=== PATIENT | female | born 1955 | race Caucasian/White ===

== ENCOUNTER → 2018-02-01 12:12 | Outpatient (CLI) | payer OTHER, SELFPAY ==
[2018-02-07 13:06] LABS: HPV Reflexed? NOT INDICATED
== END ==
PROVIDERS: Family Provider Family Medicine; PCP Family Medicine; Visit Provider Obstetrics & Gynecology
DX: Z12.4 Encounter for screening for malignant neoplasm of cervix (principal)
CPT/HCPCS: 88175; G0145

== ENCOUNTER → 2018-02-23 11:53 | Outpatient (CLI) | payer OTHER, SELFPAY | PROVIDERS: Family Provider Family Medicine; PCP Family Medicine; Visit Provider Obstetrics & Gynecology | DX: Z12.31 Encounter for screening mammogram for malignant neoplasm of breast (principal) | CPT/HCPCS: 77063; 77067 ==

== ENCOUNTER → 2018-04-12 12:30 | Outpatient (CLI) | payer OTHER, SELFPAY ==
[2018-04-12 14:10] LABS: Absolute Lymphocyte Count 2.68 X10^3/ul (0.83-4.51); Absolute Neutrophil Count 2.5 X10^3/uL (2.0-7.7); Basophil# 0.02 X10^3/uL; Basophil% 0.3 % (0-1); Eosinophils% 1.7 % (0-5); Hematocrit 41.1 % (37-47); Hemoglobin 13.4 g/dl (12.0-15.0); Lymphocyte # 2.68 X10^3/ul (4.0); Lymphocyte % 46.8 % (19-41); Mean Corp Hgb Conc 32.6 g/gl (32-36); Mean Corpuscular Hgb 29.2 pg (27.0-32.0); Mean Corpuscular Volume 89.5 fL (81-99); Monocyte# 0.45 X10^3/uL; Monocyte% 7.9 % (0-10); Neutrophil # 2.47 X10^3/uL (2.7-7.7); Neutrophil % 43.1 % (47-70); POSITIVE COUNT NO; POSITIVE DIFFERENTIAL NO; POSITIVE MORPHOLOGY NO; Platelet Count 268 K/mm3 (150-450); RBC Distribution Width CV 13.4 % (11.6-14.6); RBC Distribution Width SD 43.8 fl (35.1-43.9); Red Blood Count 4.59 M/mm3 (4.2-5.4); White Blood Count 5.7 K/mm3 (4.4-11.0)
[2018-04-12 14:26] LABS: Hemoglobin A1c 6.3 % (4.2-6.3)
[2018-04-12 14:34] LABS: Progesterone Level 0.22 ng/mL (See Comment); Vitamin B12 862 pg/mL (211-911); Vitamin D,25 Hydroxy 72.4 ng/mL (29.95-100.01)
[2018-04-12 15:32] LABS: Albumin, Serum 3.7 g/dL (3.2-5.0); BUN 16 mg/dL (7-18); BUN/Creat Ratio 21.9 RATIO (10-20); Creatinine, Serum 0.73 mg/dL (0.55-1.02); EST Glomerular Filtration Rate 86 mL/min (>60); Est Glom Filt Rate - Afr Amer 104 mL/min (>60); Glucose 94 mg/dL (74-106); Protein, Total 7.5 g/dL (6.4-8.2)
[2018-04-12 15:33] LABS: AST(SGOT) 13 U/L (15-37); Alanine Aminotransfer ALT/SGPT 27 U/L (13-56); Alkaline Phosphatase 78 U/L (45-117); Anion Gap 8 (5-15); Calcium,Total 9.2 mg/dL (8.5-10.1); Chloride 106 mmol/L (98-107); Estradiol < 11.0 pg/mL; Free T3 3.8 pg/mL (2.18-3.98); Globulin 3.8 g/dL (2.2-4.2); Potassium 3.8 mmol/L (3.5-5.1); Sodium Level 141 mmol/L (136-145); T4 Free Direct 0.82 ng/dL (0.76-1.46); Thyroid Stim Hormone (TSH) 0.64 uIU/mL (0.358-3.74)
[2018-04-13 04:09] LABS: DHEA Sulfate 66.6 ug/dL (29.4-220.5)
[2018-04-13 08:25] LABS: Thyroid Peroxidase AB 46 IU/mL (0-34)
== END ==
PROVIDERS: Family Provider Family Medicine; PCP Family Medicine; Referring Provider Preventive Medicine Public Health & General Preventive Medicine; Visit Provider Preventive Medicine Public Health & General Preventive Medicine
DX: E03.9 Hypothyroidism, unspecified (principal); E34.9 Endocrine disorder, unspecified; N95.1 Menopausal and female climacteric states; E55.9 Vitamin D deficiency, unspecified; R61 Generalized hyperhidrosis; L65.9 Nonscarring hair loss, unspecified; E53.8 Deficiency of other specified B group vitamins
CPT/HCPCS: 36415; 80053; 82306; 82607; 82627; 82670; 82746; 83036; 84144; 84403; 84439; 84443; 84481; 85025; 86376; 82626

== ENCOUNTER → 2020-05-13 14:54 | Outpatient (CLI) | payer OTHER, SELFPAY ==
--- NOTE | 2020-05-13 14:57 | BI_ITS ---
MAMMOGRAPHY - BILATERAL SCREENING REASON FOR EXAM: Female, 65 years old. Routine annual screening examination. PERTINENT HISTORY: Non-contributory. Prior right ultrasound guided breast biopsy. TECHNIQUE: Digital bilateral breast geetha (3D mammographic acquisition) in the CC and MLO projections. 2-D mediolateral oblique (MLO) and craniocaudad (CC) views of both breasts were obtained. CAD: Full Field Digital Mammography with Computer Added Detection was performed. COMPARISON: Comparison is made with prior study dated 02/23/2018 and 05/13/2016. FINDINGS: Breast Composition: There are scattered areas of fibroglandular density. There are no dominant masses or suspicious calcifications. A tissue clip marker is once again seen in the superior midportion of the right breast within a 5.4 mm nodular density. No other significant abnormalities are identified. There has been no significant change since the prior study. BI/SCREEN MAMM (CAD) W/GEETHA BILAT IMPRESSION: Stable bilateral screening mammogram. Yearly follow-up mammogram recommended. (A) ASSESSMENT CATEGORY: BIRADS Category 2: Benign. A letter regarding these results will be sent to the patient by the facility within 30 days. Approximately 10% of breast cancers are not detected by mammography. A normal mammogram should not delay biopsy of a clinically suspicious abnormality. [id number] Electronically Signed: Vijay Tejeda, at 15:37 EST , Service support ,
== END ==
PROVIDERS: PCP Family Medicine; Referring Provider Student in an Organized Health Care Education/Training Program; Visit Provider Student in an Organized Health Care Education/Training Program
DX: Z12.31 Encounter for screening mammogram for malignant neoplasm of breast (principal)
CPT/HCPCS: 77063; 77067

== ENCOUNTER 2020-11-01 21:47 | Emergency (ER) | payer OTHER, SELFPAY ==
[2020-11-01 21:50] VITALS: BP 159/98; PULSE 84; RESP 18; TEMP 36.6; O2SAT 97; BMI 26.6
--- NOTE | 2020-11-01 22:32 | EDS_ITS ---
HPI History of Present Illness Chief Complaint: Other, Pain/Inj Informant: patient Onset/Context/Timing Onset: Today Mechanism/Context: other (Patient denies any trauma. Patient states the swelling and pain started spontaneously.) Location of pain/injuries: Right lower leg Quality of Pain: Aching Location: Right proximal tibia Worsened by: Dependent position Relieved by: Elevation Associated Symptoms Associated Symptoms: Negative for Parasthesias and Weakness Narrative Narrative: Patient presents with pain and swelling to her right lower leg that began tonight. Patient states it began spontaneously. Patient denies any trauma or injury. Patient denies any paresthesias or weakness. Patient states the swelling is worse whenever it is in a dependent position. Patient states the swelling improves with elevation and ice. Patient is not on any anticoagulants. PFSH PFSH Allergy/AdvReac Type Severity Reaction Status Date / Time acetaminophen [From Vicodin] Allergy Hives Verified 11/01/20 21:49 hydrocodone [From Vicodin] Allergy Hives Verified 11/01/20 21:49 Iodinated Contrast Media Allergy Rash Verified 11/01/20 21:49 [CONTRASTS] Surgical History (Updated 11/01/20 @ 22:[address] Cheng Banda DO) History of arthroscopic knee surgery History of arthroscopy of shoulder History of cholecystectomy History of hysterectomy Social History Smoking Status: Never smoker ROS ROS ED Constitutional Constitutional ED: Denies chills or fever(s) Eyes Eyes: Denies blurry vision or change in vision ENT ENT ED: Denies rhinorrhea or sore throat Cardiovascular Cardiovascular: Denies chest pain or palpitations Respiratory/Chest Respiratory/Chest: Denies cough or dyspnea Gastrointestinal Gastrointestinal: Denies nausea or vomiting Genitourinary Genitourinary ED: Denies dysuria or hematuria Musculoskeletal Musculoskeletal: Denies back pain or neck pain Integumentary Denies abscess or rash Neurologic Neurologic: Reports headache(s); Denies paresthesias or weakness Hematologic/Lymphatic Hematologic/Lymphatic: Denies easy bleeding or easy bruising Allergic/Immunologic Allergic/Immunologic ED: Denies mouth swelling or urticaria EXAM Physical Exam Const Vital Signs: 11/01/20 21:50 11/01/20 22:07 Temperature 98 F Temperature Source Temporal Pulse Rate 84 Respiratory Rate 18 Respiratory Effort Normal Non-Labored Respiratory Pattern Normal Blood Pressure 159/98 H Blood Pressure Mean 118 Pulse Ox 97 Oxygen Delivery Method Room Air Positive well nourished and well developed General Appearance ED: well developed Extremity Extremity Narrative: There is a hematoma over the anterior aspect of the right proximal tibia. There is no bony crepitance or step-off. There is some tenderness to palpation over this area. Range of motion of the right knee was limited secondary to pain. Pedal posterior tibial pulses were equal bilaterally. Strength is 5/5 bilateral in the lower extremities. Sensation was intact to light touch bilaterally in the lower extremities. General Extremety ED: Yes edema and tenderness; Negative for deformity General Extremity: edema; Negative for deformity Neuro oriented x3, CN's II-XII intact bilaterally, no focal motor deficits and no sensory deficits noted Sensorium / Orientation: alert MDM MDM MDM Narrative Medical decision making narrative: X-rays of the right tibia and fibula were obtained. There are 2 views. On my interpretation, there is no acute fracture. There is no dislocation. There is [some mild] soft tissue swelling. Radiologist also interpreted the x-rays and agrees. CBC was within normal limits. PT with INR and PTT were normal. Patient was advised of her findings. Patient was instructed to ice and elevate the right lower leg. Patient was instructed to to use her Angel wrap as needed. Patient was instructed to follow- up with her primary care physician in 5 to 7 days. Patient understood and was agreeable with the plan. All questions were answered. Lab Data Attestation: I reviewed the patient's lab results. Labs: Laboratory Results - last 24 hr 11/01/20 11/01/20 11/01/20 22:40 22:40 23:32 WBC 6.0 RBC 4.48 Hgb 12.9 Hct 40.7 MCV 90.8 MCH 28.8 MCHC 31.7 L RDW Std Deviation 44.5 H RDW Coeff of Burt 13.2 Plt Count 246 MPV 9.9 Immature Gran % (Auto) 0.200 Neut % (Auto) 32.3 L Lymph % (Auto) 56.1 H Cooke % (Auto) 8.0 Eos % (Auto) 2.7 Baso % (Auto) 0.7 Absolute Neuts (auto) 1.9 L Absolute Lymphs (auto) 3.35 Nucleated RBC % 0 PT Cancelled 12.5 INR Cancelled 1.0 APTT Cancelled 25.3 Radiography Diagnostic Testing: Radiology Impression Tibia/Fibula X-Ray 11/01/20 22:48 IMPRESSION: No acute radiographic abnormalities. Electronically Signed: Bennie Condon MD at 23:17 EDT Tel , Service support , Discharge Plan Triage Chief Complaint: Other, Pain/Inj ED Provider: Cheng Banda Dx/Rx/DC Orders Clinical Impression: Hematoma of right lower leg Instructions: ED Soft Tissue Contusion Primary Care Provider: Frandy Wellington Referrals: Frandy Wellington MD [Primary Care Provider] - 3-5 Days Disposition Disposition: Home, self care
[2020-11-01 22:45] LABS: Absolute Lymphocyte Count 3.35 X10^3/uL (0.83-4.51); Absolute Neutrophil Count 1.9 X10^3/uL (2.0-7.7); Basophil# 0.04 X10^3/uL; Basophil% 0.7 % (0-1); Eosinophil# 0.16 X10^3/uL; Eosinophils% 2.7 % (0-5); Hematocrit 40.7 % (37-47); Hemoglobin 12.9 g/dL (12.0-15.0); Lymphocyte # 3.35 X10^3/ul (0.83-4.51); Lymphocyte % 56.1 % (19-41); Mean Corp Hgb Conc 31.7 g/dL (32-36); Mean Corpuscular Hgb 28.8 pg (27.0-32.0); Mean Corpuscular Volume 90.8 fL (81-99); Mean Platelet Vol. 9.9 fl (6.2-12.0); Monocyte# 0.48 X10^3/uL; NRBC Flagged by Analyzer 0 % (0-5); Neutrophil # 1.93 X10^3/uL (2.7-7.7); Neutrophil % 32.3 % (47-70); Platelet Count 246 K/mm3 (150-450); RBC Distribution Width CV 13.2 % (11.6-14.6); RBC Distribution Width SD 44.5 fl (35.1-43.9); Red Blood Count 4.48 M/mm3 (4.2-5.4)
--- NOTE | 2020-11-01 22:48 | RAD_ITS ---
INDICATION: Injury/Pain EXAMINATION/TECHNIQUE: X-RAY - RIGHT XR Tibia/Fibula 2 Views COMPARISON: None. FINDINGS: No acute fracture or malalignment. No blastic or lytic lesions. No degenerative changes are seen. The soft tissues are unremarkable. RAD/Tibia & Fibula 2 Views IMPRESSION: No acute radiographic abnormalities. Electronically Signed: Bennie Condon MD at 23:17 EDT Tel , Service support ,
[2020-11-01 23:47] LABS: Partial Thromboplast Time 25.3 Seconds (24.1-36.2); Prothrombin Time (Protime)PT. 12.5 SECONDS (11.7-14.9)
== END 2020-11-02 00:03 | disposition home or self-care (01) ==
PROVIDERS: Emergency Provider Emergency Medicine; PCP Family Medicine
DX: S80.11XA Contusion of right lower leg, initial encounter (principal); X58.XXXA Exposure to other specified factors, initial encounter; Y93.89 Activity, other specified; Y92.89 Other specified places as the place of occurrence of the external cause; Y99.8 Other external cause status
CPT/HCPCS: 73590; 85025; 85610; 85730; 99283; A4216

== ENCOUNTER 2020-12-14 14:33 | Outpatient (CLI) | payer OTHER, SELFPAY ==
[2020-12-14 10:16] VITALS: BMI 26.6
[2020-12-14 14:38] VITALS: BP 131/87; PULSE 97; RESP 20; TEMP 36.9; O2SAT 94; BMI 25.7
[2020-12-14 15:11] VITALS: BP 109/83; PULSE 93; RESP 18; TEMP 37.3; O2SAT 93
[2020-12-14] MEDS: 0.9% Saline Lock 10 ML Syringe IV ×2 (15:11→15:53)
[2020-12-14 15:41] VITALS: BP 123/88; PULSE 86; RESP 18; TEMP 36.8; O2SAT 93
[2020-12-14 16:11] VITALS: BP 129/85; PULSE 87; RESP 18; TEMP 36.7; O2SAT 96
[2020-12-14 16:41] VITALS: BP 134/93; PULSE 94; RESP 18; TEMP 36.7; O2SAT 97
[2020-12-14 16:42] VITALS: BP 134/93; PULSE 94; RESP 18; TEMP 36.7; O2SAT 97
== END 2020-12-14 16:43 | disposition home or self-care (01) ==
LOC: ICUOUT 14:33 → ICU 14:35
PROVIDERS: PCP Family Medicine; Referring Provider Nurse Practitioner Acute Care; Visit Provider Nurse Practitioner Acute Care
DX: U07.1 COVID-19 (principal); I10 Essential (primary) hypertension
CPT/HCPCS: J7050; M0245; Q0245; A4216

== ENCOUNTER → 2021-11-12 | Outpatient (CLI) | payer OTHER, SELFPAY ==
--- NOTE | 2021-11-12 08:07 | BI_ITS ---
MAMMOGRAPHY - BILATERAL SCREENING REASON FOR EXAM: Female, 66 years old. Routine annual screening examination. PERTINENT HISTORY: Non-contributory. History of prior needle biopsy of the right breast. TECHNIQUE: Digital bilateral breast geetha (3D mammographic acquisition) in the CC and MLO projections. 2-D mediolateral oblique (MLO) and craniocaudad (CC) views of both breasts were obtained. CAD: Full Field Digital Mammography with Computer Added Detection was performed. COMPARISON: Comparison is made with prior study dated 05/13/2020 and 02/24/2008. FINDINGS: Breast Composition: There are scattered areas of fibroglandular density. There are no dominant masses or suspicious calcifications. A tissue clip marker is once again seen in the superior midportion of the right breast within a 5.4 mm nodular density in keeping with history of prior biopsy. This is unchanged. No other significant abnormalities are identified. There has been no significant change since the prior study. BI/SCRN MAMM (CAD)W/GEETHA BILAT IMPRESSION: Stable bilateral screening mammogram. Yearly follow-up mammogram recommended. (A) ASSESSMENT CATEGORY: BIRADS Category 2: Benign. A letter regarding these results will be sent to the patient by the facility within 30 days. Approximately 10% of breast cancers are not detected by mammography. A normal mammogram should not delay biopsy of a clinically suspicious abnormality. [id number] Electronically Signed: Vijay Tejeda MD at 9:01 EDT ,
== END | disposition home or self-care (01) ==
PROVIDERS: PCP Family Medicine; Referring Provider Nurse Practitioner Acute Care; Visit Provider Nurse Practitioner Acute Care
DX: Z12.31 Encounter for screening mammogram for malignant neoplasm of breast (principal)
CPT/HCPCS: 77063; 77067

== ENCOUNTER → 2022-01-13 | Outpatient (CLI) | payer MEDICARE, SELFPAY ==
--- NOTE | 2022-01-13 09:56 | BD_ITS ---
STUDY: DUAL ENERGY X-RAY ABSORPTIOMETRY / DXA REASON FOR EXAM: Female, 67 years old. M85.89. Patient is postmenopausal. TECHNIQUE: Bone Mineral Density (BMD) measurements of lumbar spine and bilateral hips were obtained. COMPARISON: Comparison is made with prior study dated 11/17/2011. FINDINGS: Lumbar Spine (L1-L4): g/cm2 (0.877) / T-score (-1.9) / Z-score (-1.1) Findings are suggestive of osteopenia with a moderate fracture risk. Left Femur Total: g/cm2 (0.771) / T-score (-1.7) / Z-score (-1.1) Left Femoral Neck: g/cm2 (0.719) / T-score (-1.5) / Z-score (-0.4) Right Femur Total: g/cm2 (0.722) / T-score (-2.1) / Z-score (-1.4) Right Femoral Neck: g/cm2 (0.615) / T-score (-2.3) / Z-score (-1.2) BD/Dexa Bone Density Study IMPRESSION: The patient is considered osteopenic as outlined below according to World [employer] Organization (WHO) criteria with a high fracture risk. Reference Information: The T-score is the number of standard deviations above or below the standard which is normal for young adults at their peak bone mineral density. The World Health Organization (WHO) interprets the T-scores as follows: Above -1 Normal bone density Between -1 and -2.5 Osteopenia Equal to / or below -2.5 Osteoporosis As a practical clinical guideline, osteopenia may be graded as follows: Mild -1 through -1.5 Moderate -1.6 through -2.0 Severe -2.1 through -2.4 The Z-score is the number of standard deviations above or below age-matched controls. A Z-score of less than -1.5 would be considered abnormal. References: 1. NIH Osteoporosis and Related Bone Diseases www osteo.org 2. International Society for Clinical Densitometry www iscd.org 3. National Osteoporosis Foundation www nof.org Electronically Signed: Vijay Tejeda MD at 15:02 EDT ,
== END | disposition home or self-care (01) ==
PROVIDERS: PCP Family Medicine; Referring Provider Student in an Organized Health Care Education/Training Program; Visit Provider Student in an Organized Health Care Education/Training Program
DX: M85.89 Other specified disorders of bone density and structure, multiple sites (principal); Z78.0 Asymptomatic menopausal state
CPT/HCPCS: 77080

== ENCOUNTER → 2022-02-16 | Outpatient (CLI) | payer MEDICARE, SELFPAY ==
--- NOTE | 2022-02-16 15:30 | VUL_PTH ---
PATIENT: TEJA GARRISON LOC: [facility] U#:[id number] AGE/SX: 67/F ROOM: RE02/16/[address]: Dr. Parris Gould DO : 1955 BED: DIS: 02/16/2022 SPEC #: [id number] RECD: 02/17/22 08:19 STATUS: FELIPA REQ #: [id number] MINH: 02/16/22 15:[address]: Parris Gould DEPT: SURGICAL PATHOLOGY RECD BY: Ashli Campos ENTERED: 02/17/22 08:19 SP TYPE: VULVA BX OTHR DR: Dr. Frandy Wellington MD Tissues: Vulva, NOS Procedures: Surgery Specimen Level IV HEADER OPERATION: Excision PRE-OP DIAGNOSIS: Vulvar cyst right TISSUE SUBMITTED: Vulvar cyst MICROSCOPIC DIAGNOSIS Vulvar cyst, biopsy: Benign epithelial inclusion cyst. AM:raymond 02/18/2022 MICROSCOPIC DESCRIPTION Slides are reviewed. GROSS DESCRIPTION Received in fixative is one container labeled with the patient's name and designated cyst. The specimen consists of two irregular fragments of lares soft tissue to hemorrhagic soft tissue that in aggregate measure 0.7 x 0.2 x 0.1 cm. The specimen is totally submitted in one cassette. / SJ:rg 02/17/2022 TC:5 CPT: 26783
== END | disposition home or self-care (01) ==
LOC: LABSPEC 15:55
PROVIDERS: PCP Family Medicine; Visit Provider Student in an Organized Health Care Education/Training Program
DX: L72.0 Epidermal cyst (principal)
CPT/HCPCS: 88305

== ENCOUNTER → 2023-03-03 | Outpatient (CLI) | payer MEDICARE, SELFPAY ==
--- NOTE | 2023-03-03 10:46 | BI_ITS ---
MAMMOGRAPHY - BILATERAL SCREENING REASON FOR EXAM: Female, 68 years old. Routine annual screening examination. PERTINENT HISTORY: Non-contributory. History of prior right needle breast biopsy. TECHNIQUE: Digital bilateral breast geetha (3D mammographic acquisition) in the CC and MLO projections. 2-D mediolateral oblique (MLO) and craniocaudad (CC) views of both breasts were obtained. CAD: Full Field Digital Mammography with Computer Added Detection was performed. COMPARISON: Comparison is made with prior study dated November 12, 2021 and May 13, 2020. FINDINGS: Breast Composition: There are scattered areas of fibroglandular density. There are no dominant masses or suspicious calcifications. Stable 5.4 mm well-defined nodule in the deep upper slightly lateral aspect of the right breast. A tissue clip marker is seen within it with history of prior biopsy. No other significant abnormalities are identified. There has been no significant change since the prior study. BI/SCRN MAMM (CAD)W/GEETHA BILAT IMPRESSION: Stable bilateral screening mammogram. Yearly follow-up mammogram recommended. (A) ASSESSMENT CATEGORY: BIRADS Category 2: Benign. A letter regarding these results will be sent to the patient by the facility within 30 days. Approximately 10% of breast cancers are not detected by mammography. A normal mammogram should not delay biopsy of a clinically suspicious abnormality. [id number] Electronically Signed: Vijay Tejeda MD at 12:38 EDT ,
== END | disposition home or self-care (01) ==
LOC: OPBI 10:45
PROVIDERS: PCP Internal Medicine; Referring Provider Internal Medicine; Visit Provider Internal Medicine
DX: Z12.31 Encounter for screening mammogram for malignant neoplasm of breast (principal)
CPT/HCPCS: 77063; 77067

== ENCOUNTER 2023-03-14 16:47 | Outpatient (CLI) | payer MEDICARE, SELFPAY ==
[2023-03-14 18:30] LABS: Anion Gap 9 (5-15); BUN 14 mg/dL (7-18); BUN/Creat Ratio 19.6 RATIO (10-20); Calcium,Total 9.2 mg/dL (8.5-10.1); Chloride 107 mmol/L (98-107); Creatinine, Serum 0.72 mg/dL (0.55-1.02); EST Glomerular Filtration Rate 87 mL/min (>60); Est Glom Filt Rate - Afr Amer 105 mL/min (>60); Glucose 103 mg/dL (74-106); Potassium 3.1 mmol/L (3.5-5.1); Sodium Level 140 mmol/L (136-145)
[2023-03-14 18:33] LABS: Insulin 11.4 mU/L (2.6-37.6)
[2023-03-14 19:06] LABS: Hemoglobin A1c 6.5 % (3.8-5.6)
[2023-03-16 12:09] LABS: C-Peptide 3.4 ng/mL (1.1-4.4)
== END 2023-03-14 23:59 | disposition home or self-care (01) ==
PROVIDERS: PCP Internal Medicine; Referring Provider Preventive Medicine Public Health & General Preventive Medicine; Visit Provider Preventive Medicine Public Health & General Preventive Medicine
DX: E11.9 Type 2 diabetes mellitus without complications (principal)
CPT/HCPCS: 36415; 80048; 83036; 83525; 84681

== ENCOUNTER → 2023-06-12 | Outpatient (CLI) | payer MEDICARE, SELFPAY ==
--- NOTE | 2023-06-12 12:34 | RAD_ITS ---
STUDY: X-RAY CHEST REASON FOR EXAM: Female, 68 years old. Cough TECHNIQUE: PA and lateral views of the chest. COMPARISON: None. FINDINGS: The lungs are clear and expanded. There is no demonstrated pleural abnormality. Normal size heart. Normal mediastinum and shavon. Normal visualized pulmonary arteries. There is atherosclerotic tortuosity of the aortic arch and descending thoracic aorta. There are diffuse degenerative changes of the visualized thoracic spine. Normal visualized ribs, clavicles, and shoulders. There is no demonstrated abnormality of the visualized soft tissue structures of the upper abdomen. RAD/Chest PA and Lateral IMPRESSION: No acute abnormality is seen. Electronically Signed: Vijay Tejeda MD at 12:56 EST ,
== END | disposition home or self-care (01) ==
LOC: MTRAD 12:34
PROVIDERS: PCP Internal Medicine; Referring Provider Physician Assistant; Visit Provider Physician Assistant
DX: R05.9 Cough, unspecified (principal)
CPT/HCPCS: 71046

== ENCOUNTER → 2023-12-07 | Outpatient (CLI) | payer MEDICARE, SELFPAY | END | disposition home or self-care (01) | LOC: PSN 10:28 | PROVIDERS: PCP Family Medicine; Referring Provider Family Medicine; Visit Provider Family Medicine | DX: R06.02 Shortness of breath (principal) | CPT/HCPCS: 94060; 94726; 94729 ==

== ENCOUNTER 2024-03-05 09:52 | Outpatient (RCR) | payer MEDICARE, SELFPAY | END 2024-03-25 23:59 | LOC: NS 09:52 | PROVIDERS: PCP Family Medicine; Referring Provider Family Medicine; Visit Provider Family Medicine | DX: Z71.3 Dietary counseling and surveillance (principal); E11.9 Type 2 diabetes mellitus without complications | CPT/HCPCS: 97802 ==

== ENCOUNTER 2024-03-28 11:21 | Outpatient (RCR) | payer MEDICARE, SELFPAY | END 2024-04-25 23:59 | LOC: NS 11:21 | PROVIDERS: PCP Family Medicine; Referring Provider Family Medicine; Visit Provider Family Medicine | DX: Z71.3 Dietary counseling and surveillance (principal); E11.9 Type 2 diabetes mellitus without complications | CPT/HCPCS: 97803 ==

== ENCOUNTER → 2025-03-07 | Outpatient (CLI) | payer MEDICARE, SELFPAY ==
--- NOTE | 2025-03-07 12:38 | BI_ITS ---
EXAM: SCRN MAMM (CAD)W/GEETHA BILAT DATE: 03/07/2025 CLINICAL HISTORY: F, Age 70 y/o , SCREEN TECHNIQUE: Procedure Code: [id number] Modality: MG Procedure: SCRN MAMM (CAD)W/GEETHA BILAT COMPARISON: Prior exam(s) dated 03/03/2023, 11/12/2021, 05/13/2020. FINDINGS: TISSUE DENSITY: There are scattered areas of fibroglandular density. Bilateral Breast Mammographic Findings: No significant masses, calcifications or other abnormalities are identified. BI/SCRN MAMM (CAD)W/GEETHA BILAT IMPRESSION: There is no mammographic evidence of malignancy. OVERALL FINAL ASSESSMENT BI-RADS 1: NEGATIVE. RECOMMENDATION: Routine annual follow-up in 1 Year A letter with findings and recommendations will be mailed to the patient. Reading Location: [id number]
== END | disposition home or self-care (01) ==
LOC: OPBI 12:36
PROVIDERS: PCP Family Medicine; Referring Provider Family Medicine; Visit Provider Family Medicine
DX: Z12.31 Encounter for screening mammogram for malignant neoplasm of breast (principal)
CPT/HCPCS: 77063; 77067